=== PATIENT | male | born 1955 | race African-American/Black ===

== ENCOUNTER 2017-01-04 20:10 | Emergency (ER) | payer SELFPAY ==
[~2017-01-04] VITALS: Ht 182.9 cm; Wt 136.1 kg
[2017-01-04] MEDS ORDERED: LISINOPRIL20 MG ORAL (20:18)
--- NOTE | 2017-01-04 20:27 | Emergency Room Report ---
History of Present Illness General Chief Complaint: Syncope Source: Patient Present Illness HPI 61-year-old male, history of hypertension, has not been on meds for many years, presenting with sudden onset headache and vomiting. Patient states that he was at his friend's car, had a sudden headache, and could not stop vomiting, more than 10 times. EMS states that he also syncopized no blood thinners or meds Allergies: Coded Allergies: No Known Allergies (Unverified , 01/04/17) Patient History Past Medical History: see triage record Past Surgical History: none Pertinent Family History: none Reviewed Nursing Documentation: PMH: Agreed, PSxH: Agreed Nursing Documentation-PMH Hx Hypertension: Yes Review of Systems All Other Systems: negative except mentioned in HPI Physical Exam Vital Signs Date Time Temp Pulse Resp B/P (MAP) Pulse Ox O2 Delivery O2 Flow Rate FiO2 01/04/17 20:17 96.1 88 27 248/129 95 Room Air Sp02 EP Interpretation: reviewed, normal General Appearance: other - Middle aged male, diaphoretic, appears nauseous, intractable vomiting, is ANO x3 however in severe distress Head: normocephalic, atraumatic Eyes: bilateral eye normal inspection, bilateral eye PERRL, bilateral eye EOMI ENT: normal ENT inspection, normal pharynx, normal voice, moist mucus membranes Neck: normal inspection, full range of motion, supple Respiratory: normal inspection, lungs clear, normal breath sounds, no respiratory distress, no retraction, no wheezing, speaking full sentences, chest symmetrical Cardiovascular #1: normal inspection, regular rate, rhythm, normal capillary refill Cardiovascular #2: 2+ radial (R), 2+ radial (L) Gastrointestinal: normal inspection, normal bowel sounds, non tender, soft, other Musculoskeletal: normal inspection, back normal, normal range of motion, non- tender Neurologic: other - ANO x4, moving all 4 extremities spontaneously, not able to cooperate fully with the neurological exam is patient in severe distress, sensory is intact throughout, motor strength is intact throughout Psychiatric: judgement/insight normal, anxious Skin: normal inspection, normal color, no rash, warm/dry, well hydrated, normal turgor Procedures Critical Care Time Critical Care Time 40 minutes of CC time 61-year-old male with cerebellar bleed VS: Hypertensive PLAN: IV access, labs, lactate, troponin, CT head Keppra, mannitol, Cardine drip Anticipate admission to the neuro ICU CC time also includes review of labs, review of EMR, discussion with family and paperwork from SNF, d/w hospitalist CC could include dosing of pressors, additional Abx CC time does not include procedures Intubation Intubation : Consent: Emergent Tube Size (cm): 6.0 Medications: Etomidate, Succinylcholine Breath Sounds after Intubation: equal Intubation Complications: oral-unsuccessful attempt - patient had 4x unsuccessful attempts with glidescope, patient required emergent cricothyrotomy with 6.0 ETT Post Intubation Xray: Yes Attempts: Other - 4x attempts then cricothyrotomy Additional Procedure Procedure Narrative Procedure: Emergent cricothyrotomy Procedure was emergent, sterile gloves and Betadine 11 scalpel bougie used 6.0 ETT placed Taped in place 2 sutures at site for mild bleeding Medical Decision Making Diagnostic Impression: Primary Impression: Cerebellar hemorrhage Additional Impression: Respiratory failure ER Course 61-year-old male, sudden onset headache, vomiting DDX: CVA versus intracranial hemorrhage Plan: Obtain labs, ua, EKG, CXR Stat CT head ER course: Patient continuously vomiting, however ANO x3 Obtain head CT, large mid cerebellar hemorrhage Patient becoming more altered, intubated for airway protection Patient was attempted intubation with glidecope however extremely edematous airway, patient with short and fat neck 3 intubation with glidescope unsuccessful The patient underwent emergent cricothyrotomy 6.0 ET tube placed, equal breath sounds bilaterally, O2 saturation 100% Patient placed on Cardene drip, propofol drip, given mannitol push, Keppra Last BP ~130 on 10mg cardene drip I spoke with both the patient's brothers on the phone, I informed them of the patient's critical condition Disposition: The patient will be transferred to neuro ICU at [facility]. For higher level of care. I discussed with neuro emu farmer who has accepted patient for admission Please note that this Emergency Department Report was dictated using [employer] software, occasionally this can lead to erroneous entry secondary to interpretation by the dictation equipment. EKG Diagnostic Results EP Interpretation: Yes Rate: normal Rhythm: NSR ST Segments: Deep inverted T waves one in aVL ASA given to patient: No Rhythm Strip EP Interpretation: Yes Rate: 84 Rhythm: NSR, no PVCs, no ectopy Chest X-ray CXR: Ordered: Yes 1 view Indication: Altered mental status EP interpretation: Yes Interpretation: Cardiomegaly, unable to fully evaluate bilateral lung bases Impression: Megaly Electronically signed by Sandi Goss MD Chest X-ray CXR: Ordered: Yes 1 view Indication: ET tube placement EP interpretation: Yes Interpretation: Cardiomegaly, ET tube in appropriate position Impression: Cardiomegaly, ET tube in appropriate position Electronically signed by Sandi Goss MD Laboratory Tests Test 01/04/17 20:35 01/04/17 21:16 White Blood Count 11.9 K/UL (4.8-10.8) H Red Blood Count 5.31 M/UL (4.70-6.10) Hemoglobin 16.1 G/DL (14.2-18.0) Hematocrit 48.7 % (42.0-52.0) Mean Corpuscular Volume 92 FL (80-99) Mean Corpuscular Hemoglobin 30.4 PG (27.0-31.0) Mean Corpuscular Hemoglobin Concent 33.1 G/DL (32.0-36.0) Red Cell Distribution Width 11.8 % (11.6-14.8) Platelet Count 268 K/UL (150-450) Mean Platelet Volume 5.6 FL (6.5-10.1) L Neutrophils (%) (Auto) 57.1 % (45.0-75.0) Lymphocytes (%) (Auto) 28.9 % (20.0-45.0) Monocytes (%) (Auto) 12.2 % (1.0-10.0) H Eosinophils (%) (Auto) 1.0 % (0.0-3.0) Basophils (%) (Auto) 0.8 % (0.0-2.0) Urine Color Pale yellow Urine Appearance Clear Urine pH 8 (4.5-8.0) Urine Specific [place] 1.010 (1.005-1.035) Urine Protein 3+ (NEGATIVE) H Urine Glucose (UA) 2+ (NEGATIVE) H Urine Ketones Negative (NEGATIVE) Urine Occult Blood 3+ (NEGATIVE) H Urine Nitrite Negative (NEGATIVE) Urine Bilirubin Negative (NEGATIVE) Urine Urobilinogen Normal MG/DL (0.0-1.0) Urine Leukocyte Esterase Negative (NEGATIVE) Urine RBC 2-4 /HPF (0 - 0) H Urine WBC 0-2 /HPF (0 - 0) Urine Squamous Epithelial Cells None /LPF (NONE/OCC) Urine Bacteria Few /HPF (NONE) Sodium Level 138 MMOL/L (136-145) Potassium Level 3.2 MMOL/L (3.5-5.1) L Chloride Level 98 MMOL/L (98-107) Carbon Dioxide Level 29 MMOL/L (21-32) Anion Gap 11 mmol/L (5-15) Blood Urea Nitrogen 13 mg/dL (7-18) Creatinine 1.5 MG/DL (0.55-1.30) H Estimate Glomerular Filtration Rate 58.1 mL/min (>60) Glucose Level 168 MG/DL (74-106) H Calcium Level 8.9 MG/DL (8.5-10.1) Total Bilirubin 0.7 MG/DL (0.2-1.0) Aspartate Amino Transferase (AST) 33 U/L (15-37) Alanine Aminotransferase (ALT) 37 U/L (12-78) Alkaline Phosphatase 77 U/L (46-116) Troponin I 0.404 ng/mL (0.000-0.056) Pro-B-Type Natriuretic Peptide 490 pg/mL (0-125) H Total Protein 8.6 G/DL (6.4-8.2) H Albumin 4.0 G/DL (3.4-5.0) Globulin 4.6 g/dL Albumin/Globulin Ratio 0.9 (1.0-2.7) L CT/MRI/US Diagnostic Results CT/MRI/US Diagnostic Results : Imaging Test Ordered: CT Head Impression CT HEAD: Central mid cerebellar posterior fossa hemorrhage measuring 3.5 x 3.5 cm, with surrounding edema. Blood products extend into the fourth ventricle, cerebral aqueduct, with mild hydrocephalus. An underlying mass is possible. Consider MR imaging with contrast Last Vital Signs Date Time Temp Pulse Resp B/P (MAP) Pulse Ox O2 Delivery O2 Flow Rate FiO2 01/04/17 20:17 96.1 88 27 248/129 95 Room Air Disposition: [facility] Condition: Critical Sandi Goss M.D. Jan 04, 2017 20:27
[2017-01-04] MEDS ORDERED: levETIRAcetam 500mg vial IV ONE (20:56)
[2017-01-04] MEDS ORDERED: niCARdipine HCl 200 ML IV SCH (21:00)
[2017-01-04] MEDS ORDERED: levETIRAcetam 1,500 MG in D5W 95 ML IVPB ONE (21:00)
[2017-01-04 21:05] LABS: BASOPHILS % (AUTO) 0.8 % (0.0-2.0); LYMPHOCYTES % (AUTO) 28.9 % (20.0-45.0); MEAN CORPUSCULAR HEMOGLOBIN 30.4 PG (27.0-31.0); MEAN CORPUSCULAR HGB CONC 33.1 G/DL (32.0-36.0); MEAN CORPUSCULAR VOLUME 92 FL (80-99); MEAN PLATELET VOLUME 5.6 FL (6.5-10.1); MONOCYTES % (AUTO) 12.2 % (1.0-10.0); NEUTROPHILS % (AUTO) 57.1 % (45.0-75.0); PLATELET COUNT 268 K/UL (150-450); RED BLOOD COUNT 5.31 M/UL (4.70-6.10); RED CELL DISTRIBUTION WIDTH 11.8 % (11.6-14.8); WHITE BLOOD COUNT 11.9 K/UL (4.8-10.8)
[2017-01-04] MEDS ORDERED: Zemuron 50mg/5ml Inj IV ONE (21:08)
[2017-01-04 21:28] LABS: APPEARANCE,URINE CLEAR; KETONES,URINE NEGATIVE (NEGATIVE); LEUKOCYTE ESTERASE ,URINE NEGATIVE (NEGATIVE); NITRITE,URINE NEGATIVE (NEGATIVE); PH,URINE 8 (4.5-8.0); PROTEIN,URINE 3+ (NEGATIVE); UROBILINOGEN,URINE NORMAL MG/DL (0.0-1.0)
[2017-01-04 21:38] LABS: ANION GAP 11 mmol/L (5-15); CALCIUM 8.9 MG/DL (8.5-10.1); CARBON DIOXIDE 29 MMOL/L (21-32); CHLORIDE 98 MMOL/L (98-107); CREATININE 1.5 MG/DL (0.55-1.30); GLOMERULAR FILTRATION RATE 58.1 mL/min (>60); POTASSIUM 3.2 MMOL/L (3.5-5.1); SODIUM 138 MMOL/L (136-145)
[2017-01-04 21:50] LABS: ALANINE AMINOTRANSFERASE 37 U/L (12-78); ALBUMIN/GLOBULIN RATIO 0.9 (1.0-2.7); ASPARTATE AMINO TRANSFERASE 33 U/L (15-37); TOTAL PROTEIN 8.6 G/DL (6.4-8.2)
[2017-01-04 21:57] LABS: BACTERIA,URINE FEW /HPF; WBC,URINE 0-2 /HPF (0 - 0)
[2017-01-04 22:30] VITALS: BP 163/110
[2017-01-04 22:44] LABS: PROTHROMBIN TIME 10.5 SEC (9.30-11.50)
[2017-01-04] MEDS ORDERED: Succinylcholine 20mg/ml 10ml vial IV ONE ×2 (23:00)
[2017-01-04] MEDS ORDERED: Propofol 200mg/20ml IV ONE (23:00)
[2017-01-04] MEDS ORDERED: Etomidate 40mg/20ml Inj IV ONE ×2 (23:00)
[2017-01-04 23:48] VITALS: BP 248/129
--- NOTE | 2017-01-05 11:29 | Diagnostic Imaging Report ---
Indication: Chest pain Technique: One view of the chest Comparison: none Findings: The heart is enlarged. Aorta is tortuous. There is right hilar prominence. There is mild interstitial congestion Impression: Right hilar prominence, likely ectatic hilar vasculature, but hilar mass/adenopathy not excludable. Consider CT for further evaluation Cardiomegaly Mild interstitial congestion Findings discussed with Dr. Wilkins in the emergency room at time of interpretation
--- NOTE | 2017-01-05 11:36 | Diagnostic Imaging Report ---
Indications: Pain Technique: Spiral acquisitions obtained through the brain. Angled axial and coronal 5 x 5 mm slices were reconstructed. Total dose length product 1495 mGycm. CTDI vol(s) 70 mGy. Dose reduction achieved using automated exposure control Comparison: None Findings: There is a large intraparenchymal hemorrhage centered within the cerebellum, largely central but extending just to the right of midline. This measures 4.1 cm in length by 3.4 cm AP by 3.2 cm craniocaudad. There is surrounding edema. There is mass effect, manifested primarily by loss of the extra-axial CSF spaces within the posterior fossa. There is evidence of rupture into the ventricular system, with filling of the fourth ventricle, filling of the foramina of [place], the cerebral aqueduct, and a small amount of blood within the third ventricle. There is also suggestion of a small amount of subarachnoid blood leaked into the CSF spaces near the cerebellopontine angles bilaterally, presumably due to leakage through the foramina. There is equivocal low attenuation of the rafa and midbrain. Supratentorially, there is enlargement of ventricles and extra axial CSF spaces and periventricular deep white matter low-attenuation consistent with chronic ischemic change. No supratentorial hemorrhage or edema, mass effect, or midline shift. Impression: 4.1 x 2.4 x 3.2 cerebellar intracranial hemorrhage. Extension of the fourth ventricle, cerebral aqueduct, third ventricle, and foramina of [place], possibly into the surrounding posterior fossa CSF spaces Surrounding edema. Local mass effect manifested by attenuation of the stranding CSF spaces No supratentorial hemorrhage Chronic and age-related changes, as described Critical value findings provided by [employer] to the emergency room by phone at [phone] on 01/04/[address] scanner at [facility] is accredited by the [employer] and the scans are performed using protocols designed to limit radiation exposure to as low as reasonably achievable to attain images of sufficient resolution adequate for diagnostic evaluation.
--- NOTE | 2017-01-05 11:56 | Diagnostic Imaging Report ---
Indication: Post intubation Technique: One view of the chest Comparison: 2 hours earlier Findings: Interim placement of an endotracheal tube, on initial image 1-2 cm within the right mainstem bronchus. On repeat image to suggest length, the endotracheal tube tip is still within the right mainstem bronchus. Interstitial congestive changes and right basilar atelectasis are again noted. Right hilar prominence is again noted. The heart is enlarged. Impression: Low position of endotracheal tube, tip within right mainstem bronchus including on repeat image labeled post-adjustment. Right hilar prominence, mass versus vascular prominence Dr. Wilkins notified of the above at approximately 11 AM Evidence of congestive heart failure
--- NOTE | 2017-01-06 18:28 | Cardiology Report ---
APPROVED REPORT EKG Measurement Heart [id number] [id number] [id number] Normal sinus rhythm Left axis deviation Left ventricular hypertrophy with QRS widening and repolarization abnormality Abnormal ECG
== END 2017-01-04 22:50 | disposition short-term general hospital (02) ==
LOC: EDBD 20:10 → EDBEDREQ 20:32 → EMR 21:07
DX: I61.4 Nontraumatic intracerebral hemorrhage in cerebellum (principal); I10 Essential (primary) hypertension
CPT/HCPCS: 31500; 36415; 70450; 71010; 80053; 81003; 83880; 84484; 85025; 85610; 85730; 93005; 94002; 94664; 96365; 96366; 96375; 99291; J1953; J2150; J2405

== ENCOUNTER 2019-04-09 13:40 | Emergency (ER) | payer OTHER ==
[~2019-04-09] VITALS: Ht 188 cm; Wt 136.1 kg
[~2019-04-09 13:40] MED LIST: LISINOPRIL20 MG ORAL
--- NOTE | 2019-04-09 14:08 | NUR ---
ED Nurse Note: blood sent to lab
[2019-04-09 14:11] VITALS: BP 150/78
--- NOTE | 2019-04-09 14:15 | NUR ---
ED Nurse Note: Patient brought in by ambulance from [facility] due to low BP and possible seizure episode in the morning witnessed by SNF staff and no head injury or LOC reported. pt has trach hole but not being used. pt aao x1-2 but able to follow the commands and cooperative. skin dry but intact. labored breathing noted and ERMD made aware. pt is in gown and on pvc monitor. BP went up to 155/78mmHg after 1 L of NS from EMS. pt does not recall of seizure episode in the morning.
[2019-04-09 14:26] LABS: BASOPHILS % (AUTO) 0.6 % (0.0-2.0); HEMATOCRIT 46.1 % (42.0-52.0); HEMOGLOBIN 15.5 G/DL (14.2-18.0); LYMPHOCYTES % (AUTO) 9.9 % (20.0-45.0); MEAN CORPUSCULAR VOLUME 86 FL (80-99); MONOCYTES % (AUTO) 9.1 % (1.0-10.0); NEUTROPHILS % (AUTO) 79.3 % (45.0-75.0); PLATELET COUNT 213 K/UL (150-450); RED BLOOD COUNT 5.37 M/UL (4.70-6.10); RED CELL DISTRIBUTION WIDTH 12.6 % (11.6-14.8); WHITE BLOOD COUNT 9.7 K/UL (4.8-10.8)
--- NOTE | 2019-04-09 14:40 | NUR ---
ED Nurse Note: Flu swab and urine have been collected.
--- NOTE | 2019-04-09 14:41 | NUR ---
ED Nurse Note: pt went to CT scan and came back in stable condition.
[2019-04-09 14:44] LABS: ANION GAP 17 mmol/L (5-15); BLOOD UREA NITROGEN 12 mg/dL (7-18); CALCIUM 9.4 MG/DL (8.5-10.1); CARBON DIOXIDE 25 MMOL/L (21-32); CHLORIDE 101 MMOL/L (98-107); CREATININE 1.3 MG/DL (0.55-1.30); POTASSIUM 3.1 MMOL/L (3.5-5.1); SODIUM 143 MMOL/L (136-145)
[2019-04-09 14:58] LABS: ALANINE AMINOTRANSFERASE 23 U/L (12-78); ALBUMIN 3.6 G/DL (3.4-5.0); ALBUMIN/GLOBULIN RATIO 0.7 (1.0-2.7); ALKALINE PHOSPHATASE 86 U/L (46-116); ASPARTATE AMINO TRANSFERASE 25 U/L (15-37); BILIRUBIN,TOTAL 0.3 MG/DL (0.2-1.0); CKMB 2.4 NG/ML (0.0-3.6); CREATINE KINASE 276 U/L (26-308); PHOSPHORUS 2.3 MG/DL (2.5-4.9)
[2019-04-09 15:06] LABS: APPEARANCE,URINE CLEAR; BILIRUBIN, URINE NEGATIVE (NEGATIVE); COLOR,URINE PALE YELLOW; GLUCOSE, URINE (UA) NEGATIVE (NEGATIVE); KETONES,URINE NEGATIVE (NEGATIVE); LEUKOCYTE ESTERASE ,URINE NEGATIVE (NEGATIVE); NITRITE,URINE NEGATIVE (NEGATIVE); PH,URINE 8 (4.5-8.0); PROTEIN,URINE 1+ (NEGATIVE); UROBILINOGEN,URINE NORMAL MG/DL (0.0-1.0)
--- NOTE | 2019-04-09 15:22 | NUR ---
ED Nurse Note: called RT for reminder of ABG.
[2019-04-09] MEDS ORDERED: Piperacillin/Tazobactam 3.375 GM in NS 110 ML IVPB ONE (15:30)
[2019-04-09] MEDS ORDERED: Azithromycin 500 MG in NS 275 ML IV ONE (15:30)
[2019-04-09] MEDS ORDERED: Sodium Chloride 4,100 ML IVLG ONE (15:30)
--- NOTE | 2019-04-09 15:38 | Diagnostic Imaging Report ---
Indication: Headache Technique: Contiguous 5 mm thick transaxial imaging of the head obtained in a Siemens Sensation [address] scanner. Soft tissue and bone windows generated. Automatic Exposure Control was utilized. Total Dose length Product (DLP): 1125.7mGycm CT Dose Index Volume (CTDIvol): 53.4 mGy Comparison: 01/04/2017 Findings: There is bifrontal encephalomalacia present right worse than left. There is encephalomalacia in the posterior fossa involving the cerebellar vermis. On the previous occasion there was an acute parenchymal hematoma within the cerebellum. There is mild prominence of the ventricles, basal cisterns, and cerebral sulci consistent with atrophy. Mild, nonspecific, white matter hypoattenuation is noted throughout the brain consistent with chronic small vessel disease. There is no midline shift, edema, acute hemorrhage, mass effect, or abnormal extra-axial fluid collections. Bones are unremarkable. Impression: No acute intracranial bleed, mass effect or edema. Patchy encephalomalacia involving bifrontal regions and the cerebellar vermis. Mild atrophy of the brain. Nonspecific white matter hypoattenuation probably due to chronic small vessel disease. The CT scanner at [facility] is accredited by the [employer] and the scans are performed using dose optimization techniques as appropriate to a performed exam including Automatic Exposure control.
[2019-04-09] MEDS ORDERED: ACETAMINOPHEN325 M1 ORAL (16:09)
[2019-04-09] MEDS ORDERED: ZANTAC150 MG ORAL (16:09)
[2019-04-09] MEDS ORDERED: AMLODIPINE BESY10 MG ORAL (16:09)
[2019-04-09] MEDS ORDERED: CRESTOR20 MG ORAL (16:09)
[2019-04-09] MEDS ORDERED: HYDRALAZINE HCL50 MG ORAL (16:09)
[2019-04-09] MEDS ORDERED: TRAZODONE HCL50 MG ORAL (16:09)
[2019-04-09] MEDS ORDERED: COLACE100 MG ORAL (16:09)
--- NOTE | 2019-04-09 16:27 | Emergency Room Report ---
History of Present Illness General Chief Complaint: General Complaint Source: Patient, Medical Record Present Illness HPI 63-year-old male presents ED for evaluation. Brought in by EMS from [facility] facility. Per facility patient had a seizure-like episode today which lasted for a few seconds. Patient does not recall having that episode. No history of seizures. Patient also hypotensive at facility today. Patient was given IV fluids. BP improved here. Patient states he feels okay. Denies any headache. Denies any chest pain or shortness of breath. No other aggravating relieving factors. Denies any other associated symptoms Allergies: Coded Allergies: No Known Allergies (Unverified , 01/04/17) Patient History Past Medical History: DM, HTN, other - encephalopathy Past Surgical History: none Pertinent Family History: none Social History: Denies: smoking, alcohol use, drug use Immunizations: UTD Reviewed Nursing Documentation: PMH: Agreed; PSxH: Agreed Nursing Documentation-PMH Hx Hypertension: Yes Hx Diabetes: Yes Hx Cerebrovascular Accident: Yes - ENCEPHALOPATHY, Review of Systems All Other Systems: negative except mentioned in HPI Physical Exam Vital Signs Date Time Temp Pulse Resp B/P (MAP) Pulse Ox O2 Delivery O2 Flow Rate FiO2 04/09/19 13:47 98.1 73 18 109/69 (82) 98 Room Air Sp02 EP Interpretation: reviewed, normal General Appearance: no apparent distress, alert, GCS 15, non-toxic Head: normocephalic, atraumatic Eyes: bilateral eye normal inspection, bilateral eye PERRL ENT: hearing grossly normal, normal pharynx, no angioedema, normal voice Neck: full range of motion, supple/symm/no masses, other - old trach Respiratory: chest non-tender, crackles, speaking full sentences Cardiovascular #1: regular rate, rhythm, no edema Cardiovascular #2: 2+ carotid (R), 2+ carotid (L), 2+ radial (R), 2+ radial (L) , 2+ dorsalis pedis (R), 2+ dorsalis pedis (L) Gastrointestinal: normal bowel sounds, non tender, soft, non-distended, no guarding, no rebound Rectal: deferred Genitourinary: normal inspection, no CVA tenderness Musculoskeletal: back normal, normal range of motion, gait/station normal, non- tender Neurologic: alert, motor strength/tone normal, oriented x3, sensory intact, responsive, speech normal Psychiatric: judgement/insight normal, memory normal, mood/affect normal, no suicidal/homicidal ideation Reflexes: 3+ bicep (R), 3+ bicep (L), 3+ tricep (R), 3+ tricep (L), 3+ knee (R) , 3+ knee (L) Skin: other - see nursing skin notes Lymphatic: no adenopathy Procedures Critical Care Time Critical Care Time i. I feel this is a highly complex case requiring extensive working including EKG/Rhythm strip, Xray/CT/US, Blood/urine lab work, repeat exams while in ED, and administration of strong opiates/narcotics for pain control, admission to hospital or close patient follow up. Total time: 30 min bedside evaluation and treatment excludes procedures (EKG). Reason for critical care: elevated troponin, hypotension, high lactic acid Possible complications: hypotension, hypertension, SD, shock, arrhythmias, metabolic acidosis, end organ damage, respiratory failure. Interventions: Labs, EKG, chest x-ray, CT, antibiotics, 30 cc/kg fluid bolus, aspirin Course: Patient presenting with seizure-like episode today. Hypotensive at [facility] facility. BP improved here after IV fluids. CT negative except for encephalomalacia. Chest x-ray shows some atelectasis. Lactic acid 5.9. Troponin 0.2. Patient denies chest pain. Given 30 cc/kg fluid bolus. Given broad-spectrum antibiotics. Given aspirin. Consultations: nursing staff, EMS, family Performed by: Dr Pinto Tolerated well condition = serious j. because of unstable vital signs this patient had a condition that could potentially threaten life or limb. I feel this is a critical patient who required my full attention while patient was considered critical. Total Critical Care Time excluding procedures was greater than 35 minutes Medical Decision Making Diagnostic Impression: Primary Impression: Altered level of consciousness Additional Impressions: Elevated troponin Seizure ER Course Hospital Course 63-year-old male presents with reported seizure. Hypotensive Differential diagnosis includes- sepsis, alcohol abuse, hyponatremia Clinical course Patient placed on stretcher. cardiac monitor with stable BP. Initial history and physical I ordered labs, IV fluids, EKG, CXR, CT brain Labs-electrolytes okay, no leukocytosis hemoglobin/hematocrit stable. trop 0.239. lactic 5.9 EKG- NSR no acute ischemic changes interpreted by me CXr - no acute process or focal consolidation CT Brain encephalomalacia no Fever. No source of infection. Lactic elevation likely due to seizure. Given 30 cc/kg fluid bolus. Given empiric antibiotics. Patient had additional seizure in ED. Given Ativan. Given Keppra. Because of insurance patient will be transferred i. I feel this is a highly complex case requiring extensive working including EKG/Rhythm strip, Xray/CT/US, Blood/urine lab work, repeat exams while in ED, and administration of strong opiates/narcotics for pain control, admission to hospital or close patient follow up. Diagnosis - ALOC, elevated troponin, seizure transferred in serious condition Labs Test 04/09/19 13:40 04/09/19 14:40 04/09/19 15:49 White Blood Count 9.7 K/UL (4.8-10.8) Red Blood Count 5.37 M/UL (4.70-6.10) Hemoglobin 15.5 G/DL (14.2-18.0) Hematocrit 46.1 % (42.0-52.0) Mean Corpuscular Volume 86 FL (80-99) Mean Corpuscular Hemoglobin 28.9 PG (27.0-31.0) Mean Corpuscular Hemoglobin Concent 33.7 G/DL (32.0-36.0) Red Cell Distribution Width 12.6 % (11.6-14.8) Platelet Count 213 K/UL (150-450) Mean Platelet Volume 5.4 FL (6.5-10.1) Neutrophils (%) (Auto) 79.3 % (45.0-75.0) Lymphocytes (%) (Auto) 9.9 % (20.0-45.0) Monocytes (%) (Auto) 9.1 % (1.0-10.0) Eosinophils (%) (Auto) 1.0 % (0.0-3.0) Basophils (%) (Auto) 0.6 % (0.0-2.0) Prothrombin Time 10.7 SEC (9.30-11.50) Prothromb Time International Ratio 1.0 (0.9-1.1) Activated Partial Thromboplast Time 26 SEC (23-33) Sodium Level 143 MMOL/L (136-145) Potassium Level 3.1 MMOL/L (3.5-5.1) Chloride Level 101 MMOL/L (98-107) Carbon Dioxide Level 25 MMOL/L (21-32) Anion Gap 17 mmol/L (5-15) Blood Urea Nitrogen 12 mg/dL (7-18) Creatinine 1.3 MG/DL (0.55-1.30) Estimat Glomerular Filtration Rate > 60 mL/min (>60) Glucose Level 156 MG/DL (74-106) Lactic Acid Level 5.90 mmol/L (0.4-2.0) Calcium Level 9.4 MG/DL (8.5-10.1) Phosphorus Level 2.3 MG/DL (2.5-4.9) Magnesium Level 2.2 MG/DL (1.8-2.4) Total Bilirubin 0.3 MG/DL (0.2-1.0) Aspartate Amino Transf (AST/SGOT) 25 U/L (15-37) Alanine Aminotransferase (ALT/SGPT) 23 U/L (12-78) Alkaline Phosphatase 86 U/L (46-116) Total Creatine Kinase 276 U/L (26-308) Creatine Kinase MB 2.4 NG/ML (0.0-3.6) Creatine Kinase MB Relative Index 0.8 Troponin I 0.239 ng/mL (0.000-0.056) Pro-B-Type Natriuretic Peptide 294 pg/mL (0-125) Total Protein 8.5 G/DL (6.4-8.2) Albumin 3.6 G/DL (3.4-5.0) Globulin 4.9 g/dL Albumin/Globulin Ratio 0.7 (1.0-2.7) Urine Color Pale yellow Urine Appearance Clear Urine pH 8 (4.5-8.0) Urine Specific [place] 1.010 (1.005-1.035) Urine Protein 1+ (NEGATIVE) Urine Glucose (UA) Negative (NEGATIVE) Urine Ketones Negative (NEGATIVE) Urine Blood Negative (NEGATIVE) Urine Nitrite Negative (NEGATIVE) Urine Bilirubin Negative (NEGATIVE) Urine Urobilinogen Normal MG/DL (0.0-1.0) Urine Leukocyte Esterase Negative (NEGATIVE) Urine RBC 0-2 /HPF (0 - 0) Urine WBC 0-2 /HPF (0 - 0) Urine Squamous Epithelial Cells Occasional /LPF Urine Bacteria Occasional /HPF (NONE) Arterial Blood pH 7.475 (7.350-7.450) Arterial Blood Partial Pressure CO2 37.4 mmHg (35.0-45.0) Arterial Blood Partial Pressure O2 78.1 mmHg (75.0-100.0) Arterial Blood HCO3 26.9 mmol/L (22.0-26.0) Arterial Blood Oxygen Saturation 96.5 % (95-100) Arterial Blood Base Excess 3.4 (-2-2) Venkatesh Test Positive EKG Diagnostic Results Rate: normal Rhythm: NSR ST Segments: no acute changes ASA given to the pt in ED: No Rhythm Strip Diag. Results EP Interpretation: yes Rhythm: NSR, no PVC's, no ectopy Chest X-Ray Diagnostic Results Chest X-Ray Diagnostic Results : Chest X-Ray Ordered: Yes # of Views/Limited/Complete: 1 View Indication: Shortness of Breath EP Interpretation: Yes Interpretation: no pneumothorax, no acute cardiopulmonary disease, other - atelectasis R lung base Impression: No acute disease Electronically Signed by: Electronically signed by Will Pinto MD CT/MRI/US Diagnostic Results CT/MRI/US Diagnostic Results : Imaging Test Ordered: CT Head Impression CT Dose Index Volume (CTDIvol): 53.4 mGy Comparison: 01/04/2017 Findings: There is bifrontal encephalomalacia present right worse than left. There is encephalomalacia in the posterior fossa involving the cerebellar vermis. On the previous occasion there was an acute parenchymal hematoma within the cerebellum. There is mild prominence of the ventricles, basal cisterns, and cerebral sulci consistent with atrophy. Mild, nonspecific, white matter hypoattenuation is noted throughout the brain consistent with chronic small vessel disease. There is no midline shift, edema, acute hemorrhage, mass effect, or abnormal extra-axial fluid collections. Bones are unremarkable. Impression: No acute intracranial bleed, mass effect or edema. Patchy encephalomalacia involving bifrontal regions and the cerebellar vermis. Mild atrophy of the brain. Nonspecific white matter hypoattenuation probably due to chronic small vessel disease. The CT scanner at [facility] is accredited by the [employer] and the scans are performed using dose optimization techniques as appropriate to a performed exam including Automatic Exposure control. Last Vital Signs Date Time Temp Pulse Resp B/P (MAP) Pulse Ox O2 Delivery O2 Flow Rate FiO2 04/09/19 14:11 98.1 79 18 150/78 98 Room Air Status: improved Disposition: [facility] Condition: Serious Will Pinto MD Apr 09, 2019 16:27
--- NOTE | 2019-04-09 16:44 | Diagnostic Imaging Report ---
Indication: Dyspnea Comparison: 01/04/2017 A single view chest radiograph was obtained. Findings: No evidence of pulmonary edema at this time. There is a hyperdense focus in the right hilum probably a calcification. This is best seen on the last 2 exams as well. Cardiomegaly is present. Additional smaller calcification demonstrated in the right lung base. Aorta is diffusely tortuous and ectatic. Bones are osteopenic. IMPRESSION: No acute cardiopulmonary abnormalities. Old granulomatous disease.
--- NOTE | 2019-04-09 18:23 | NUR ---
ED Nurse Note: pt started having seizure, tonic-clonic for 60 seconds, witnessed by 1 RN and 1 coroner transport technician. ERMD made aware.
--- NOTE | 2019-04-09 18:27 | NUR ---
patient's niece [phone]
[2019-04-09] MEDS ORDERED: LORazepam Inj 2mg/ml 1ml IV ONE (18:30)
[2019-04-09] MEDS ORDERED: levETIRAcetam 1,000mg/NS100ml 100 ML IVPB ONE (18:30)
--- NOTE | 2019-04-09 19:25 | NUR ---
HAND-OFF: Report given to HEMANT Jenkins. lactic reflux sent to lab. no orders to carry at this time. report to continuous pillowcase cutter regarding transfer is done.
[2019-04-09 19:26] VITALS: BP 148/81
--- NOTE | 2019-04-09 19:26 | NUR ---
ED Nurse Note: Received report from Oziel MARCOS. Pt seen sleeping in bed. Not in any distress. Breathing even and unlabored. Will cont to monitor.
--- NOTE | 2019-04-09 21:05 | NUR ---
ED Nurse Note: [facility]
[2019-04-09 21:12] VITALS: BP 136/77
--- NOTE | 2019-04-09 21:12 | NUR ---
ED Nurse Note: Patient is cleared by ERMD to be transferred to [facility]. Report given to Juvenal MARCOS. Pt was picked up by ALS via jerry. Pt alert and orientedx2, Breathing even and unlabored. Sinus tachy 105. IV line on right hand 22g and left hand 18g patent and intact. No skin issues. All belongings was given to the patient.
== END 2019-04-09 21:20 | disposition short-term general hospital (02) ==
LOC: EDBD 13:40 → EMR 18:30
DX: R41.82 Altered mental status, unspecified (principal); R79.89 Other specified abnormal findings of blood chemistry; R56.9 Unspecified convulsions; E11.9 Type 2 diabetes mellitus without complications; I10 Essential (primary) hypertension; G93.40 Encephalopathy, unspecified; G31.9 Degenerative disease of nervous system, unspecified
CPT/HCPCS: 36415; 36600; 70450; 71045; 80053; 81003; 82550; 82553; 82803; 83605; 83735; 83880; 84100; 84484; 85025; 85610; 85730; 86710; 87040; 93005; 96365; 96368; 96375; J0456; J1953; J2543; J7030; J7050; Z7502; 99291